=== PATIENT | female | born 1950 | race African-American/Black ===

== ENCOUNTER 2021-12-30 06:21 | Observation (INO) ==
[2021-12-30 06:57] LABS: Basophils % 0.5 % (0.0-0.8); Eosinophils % 0.3 % (0.00-10.9); Hemoglobin 9.6 GM/DL (12.0-16.0); Immature Granulocytes % 0.5 %; Immature Granulocytes Absolute 0.02 #; Lymphocytes # 0.6 10*3/uL (1.4-4.0); Lymphocytes % 15.7 % (21.3-54.2); Mean Corpuscular Volume 96.9 FL (87-102); Mean Platelet Volume 11.1 FL (9.6-12.0); Monocytes # 0.2 10*3/uL (0.11-0.8); Monocytes % 4.2 % (1.7-12.7); Neutrophils % 78.8 % (38.7-73.9); Platelet Count 218 T/CUMM (130-400); Red Cell Distribution Width 14.1 % (9.3-17.3); White Blood Count 3.8 T/CUMM (4-12)
[2021-12-30 07:20] LABS: INR 1.1; PT Patient Result 12.3 SECS (10.5-12.0); Partial Thromboplastin Time 26.3 SECS (23.8-32.1)
[2021-12-30 07:26] LABS: Alanine Aminotransferase 25 U/L (13-56); Albumin 3.8 G/DL (3.4-5.0); Alkaline Phosphatase 29 U/L (45-117); Aspartate Amino Transferase 39 U/L (0-37); Bilirubin,Total < 0.39 MG/DL (0.20-1.00); Blood Urea Nitrogen 54 MG/DL (7-18); Calcium 9.6 MG/DL (8.5-10.1); Carbon Dioxide 21 MMOL/L (21-32); Chloride 110 MMOL/L (98-107); Glucose 77 MG/DL (74-106); Osmolality,Calculated 290.5 MOS/KG (273-304); Potassium 3.9 MMOL/L (3.5-5.1); Sodium 139 MMOL/L (136-145); Total Protein 7.8 G/DL (6.4-8.2)
[2021-12-30] MEDS ORDERED: ASPIRIN 325 MG TABLET ONE (07:34)
[2021-12-30] MEDS ORDERED: DEXTROSE 50% 25 GM/50 ML VIAL IV STA ×2 (09:33→14:08)
[2021-12-30] MEDS ORDERED: DEXTROSE 50% 25 GM/50 ML SYRINGE IV ONE ×2 (09:33→14:09)
[2021-12-30] MEDS: DEXTROSE 5% NACL 0.45% 1,000 ML IV SCH (13:29)
[2021-12-30] MEDS ORDERED: ONDANSETRON 4 MG/2 ML VIAL IV PRN (14:05)
[2021-12-30] MEDS ORDERED: ACETAMINOPHEN 325 MG TABLET PO PRN (14:05)
[2021-12-30] MEDS ORDERED: DEXTROSE 10% 250 ML BAG IV PRN (14:10)
[2021-12-30] MEDS: INSULIN LISPRO 100 UNIT/ML SUBCUT SCH ×2 (15:46→20:24)
[2021-12-30] MEDS: GLUCAGON 1 MG VIAL IM PRN (18:50)
[2021-12-30] MEDS: carvediloL 25 MG TABLET PO SCH (19:01)
[2021-12-30] MEDS: DOCUSATE SODIUM 100 MG CAPSULE PO SCH (20:23)
[2021-12-30] MEDS ORDERED: DOXAZOSIN 4 MG TABLET PO SCH (21:00)
[2021-12-31] MEDS: DEXTROSE 5% NACL 0.45% 1,000 ML IV SCH
[2021-12-31] MEDS: GLUCAGON 1 MG VIAL IM PRN (00:04)
[2021-12-31] MEDS: INSULIN LISPRO 100 UNIT/ML SUBCUT SCH ×2 (08:06→12:38)
[2021-12-31] MEDS: DOCUSATE SODIUM 100 MG CAPSULE PO SCH (08:59)
[2021-12-31] MEDS: carvediloL 25 MG TABLET PO SCH (08:59)
[2021-12-31] MEDS ORDERED: sitaGLIPtin 100 MG TABLET PO SCH (09:00)
[2021-12-31] MEDS ORDERED: PANTOPRAZOLE 40 MG TABLET PO SCH (09:00)
[2021-12-31] MEDS ORDERED: MAGNESIUM CHLORIDE 64 MG TABLET PO SCH (09:00)
[2021-12-31] MEDS ORDERED: CHLORTHALIDONE 25 MG TABLET PO SCH (09:00)
[2021-12-31] MEDS ORDERED: FENOFIBRATE 145 MG TABLET PO SCH (09:00)
[2021-12-31] MEDS ORDERED: POTASSIUM CHLORIDE 20 MEQ TABLET PO SCH (09:00)
[2021-12-31] MEDS ORDERED: amLODIPine 5 MG TABLET PO SCH (09:00)
[2021-12-31 12:22] VITALS: BP 126/55
== END 2021-12-31 15:05 | disposition home or self-care (01) ==
LOC: N.EDINP 06:21 → N.ED 06:21 → N.EDINP 14:56 → N.3E 15:05
PROVIDERS: ADMIT Family Medicine; ATTEND Family Medicine